=== PATIENT | male | born 2000 | race Caucasian/White ===

== ENCOUNTER 2020-01-31 21:47 | Emergency (ER) | payer BC ==
[2020-01-31 21:52] VITALS: BP 154/89; PULSE 74; RESP 20; TEMP 98.9
[2020-01-31] MEDS ORDERED: IBUPROFEN 600 MG STARTER PACK 4 TAB BTL PO STA (22:22)
--- NOTE | 2020-01-31 22:58 | ED ---
Upper Extremity HPI - General Chief Complaint: Extremity Injury, Upper Stated Complaint: Poss broken hand Time Seen by Provider: 01/31/20 21:56 Source: patient Mode of arrival: ambulatory Limitations: no limitations - History of Present Illness Initial Comments: 19-year-old male patient presents to the emergency department today for evaluation of left hand injury. Patient states became upset and punched a tree. Patient states he now has deformity and pain to the left hand. Denies taking anything for pain. Denies numbness or tingling to the hand. Denies any other injuries or concerns. Patient denies any headache, neck pain, back pain, chest pain, shortness of breath, dizziness, weakness, abdominal pain, nausea, vomiting, or difficulties with bowel movements or urination. - Related Data Previous Rx's Medication Instructions Recorded Ibuprofen [Motrin] 600 mg PO Q8HR PRN #30 tab 01/31/20 Allergies Allergy/AdvReac Type Severity Reaction Status Date / Time No Known Allergies Allergy Verified 01/31/20 22:15 Review of Systems ROS Statement: Those systems with pertinent positive or pertinent negative responses have been documented in the HPI. ROS Other: All systems not noted in ROS Statement are negative. Past Medical History Past Medical History: No Reported History Additional Past Surgical History / Comment(s): tooth abcess drain Smoking Status: Current every day smoker Past Alcohol Use History: None Reported Past Drug Use History: None Reported General Exam Limitations: no limitations General appearance: alert, in no apparent distress, other (This is a well- developed, well-nourished adult male patient in no acute distress. Vital signs upon presentation are temperature 98.9F, pulse 74, respirations 20, blood pressure 154/89, pulse ox 99% on room air.) Respiratory exam: Present: normal lung sounds bilaterally. Absent: respiratory distress, wheezes, rales, rhonchi, stridor Cardiovascular Exam: Present: regular rate, normal rhythm, normal heart sounds. Absent: systolic murmur, diastolic murmur, rubs, gallop, clicks Extremities exam: Present: full ROM, normal capillary refill, other (There is left hand deformity noted. Soft tissue swelling and tenderness over the carpals particularly left fourth. it is otherwise pink, warm, dry. Cap refills less than 3 seconds. Radial pulses 2+.). Absent: normal inspection, tenderness, pedal edema, joint swelling, calf tenderness Neurological exam: Present: alert, oriented X3, CN II-XII intact Psychiatric exam: Present: normal affect, normal mood Skin exam: Present: warm, dry, intact, normal color. Absent: rash Course Vital Signs 01/31/20 21:50 Temperature 98.9 F Pulse Rate 74 Respiratory 20 Rate Blood Pressure 154/89 O2 Sat by Pulse 99 Oximetry Procedures - Orthopedic Splinting/Casting Injury #1 Side: left Upper Extremity Injury Location: short arm Upper Extremity Immobilizer: ulnar gutter, Boni wrap Additional Comments: Hand well padded with web roll. Neurovascular status intact after splint application. Skin to the fingers is pink, warm, dry. Cap refills less than 3 seconds. Radial pulse is 2+. Patient denies numbness or tingling. Medical Decision Making - Medical Decision Making 19-year-old male patient presents to the emergency department today for evaluation after punching a chief reviewed his left hand. Physical examination did reveal deformity to the left dorsal hand especially over the fourth metacarpal. Neurovascular status was intact. Denied numbness or tingling. X- rays were obtained and did show a displaced fourth metacarpal fracture. Patient's hand was splinted. We discharged with orthopedics for further evaluation as soon as possible. He is instructed to follow-up with his primary care physician for recheck in 1-2 days. Return parameters were discussed in detail. He verbalizes understanding and agrees with this plan. - Radiology Data Radiology results: image reviewed 3 views of the left hand were obtained. Images reveal a displaced midshaft fracture of the left fourth metacarpal. Disposition Clinical Impression: Fracture of fourth metacarpal bone of left hand Disposition: HOME SELF-CARE Condition: Good Instructions (If sedation given, give patient instructions): Hand Fracture (ED), Splint Care (ED) Additional Instructions: Keep sling in place until follow-up with orthopedics. Follow-up with orthopedics as soon as possible. Call in the morning for an appointment. Return to the emergency department for any new, worsening, or concerning symptoms. Prescriptions: Ibuprofen [Motrin] 600 mg PO Q8HR PRN #30 tab PRN Reason: Pain Is patient prescribed a controlled substance at d/c from ED?: No Referrals: Mariella Cabrera DO [Doctor of Osteopathic Medicine] - 1-2 days Time of Disposition: 23:22
--- NOTE | 2020-02-01 01:23 | XR ---
EXAM: XR Left Hand Complete, 3 or More Views CLINICAL HISTORY: ITS.REASON XR Reason: punched tree TECHNIQUE: Frontal, lateral and oblique views of the left hand. COMPARISON: No relevant prior studies available. FINDINGS: Bones/joints: There is a transverse fracture of the midshaft of the fourth metacarpal with 5 dorsal displacement and 35 palmar angulation of the distal fracture fragment. The remaining phalanges, metacarpals, carpal bones appear intact and normally aligned. Soft tissues: Mild soft tissue swelling over the portion of the hand. No radiopaque foreign body. IMPRESSION: There is a transverse fracture of the midshaft of the fourth metacarpal with 5 dorsal displacement and 35 palmar angulation of the distal fracture fragment.
== END 2020-01-31 23:31 | disposition home or self-care (01) ==
LOC: EC 21:47
DX: S62.325A Displaced fracture of shaft of fourth metacarpal bone, left hand, initial encounter for closed fracture (principal); F17.200 Nicotine dependence, unspecified, uncomplicated; W22.09XA Striking against other stationary object, initial encounter; Y92.89 Other specified places as the place of occurrence of the external cause
CPT/HCPCS: 29125; 99283

== ENCOUNTER 2020-12-26 14:51 | Emergency (ER) | payer BC, OTHER ==
[2020-12-26 17:08] VITALS: BP 139/87; PULSE 87; RESP 18; TEMP 98.1
[2020-12-26] MEDS ORDERED: IBUPROFEN 800 MG TAB PO STA (17:23)
[2020-12-26] MEDS ORDERED: PENICILLIN V POTASSIUM 250 MG TAB PO STA (17:23)
[2020-12-26] MEDS ORDERED: PENICILLIN VK 500MG STARTER 4 TAB BTL PO STA (17:23)
--- NOTE | 2020-12-26 17:24 | ED ---
General Adult HPI - General Chief complaint: Dental/Oral Stated complaint: Abscess Time Seen by Provider: 12/26/20 17:15 Source: patient Mode of arrival: ambulatory Limitations: no limitations - History of Present Illness Initial comments: This is a well-appearing 20-year-old male that presents to the emergency room with left lower tooth pain since Wednesday. Patient states that the tooth fell out a couple of years ago. He states it is tender in the lower jaw but denies any fevers. No medical history. Does not take medication on a daily basis. -: days(s) (4) Location: mouth (Left tooth 18) Radiation: non-radiation Severity scale (1-10): 2 Consistency: intermittent Improves with: none Worsens with: eating Associated Symptoms: denies other symptoms Treatments Prior to Arrival: none - Related Data Previous Rx's Medication Instructions Recorded Ibuprofen [Motrin] 600 mg PO Q8HR PRN #30 tab 01/31/20 Ibuprofen [Motrin] 600 mg PO Q8HR PRN #30 tab 12/26/20 Penicillin V Potassium [Pen Vee K] 500 mg PO Q6H 7 Days #28 tablet 12/26/20 Allergies Allergy/AdvReac Type Severity Reaction Status Date / Time No Known Allergies Allergy Verified 12/26/20 17:09 Review of Systems ROS Statement: Those systems with pertinent positive or pertinent negative responses have been documented in the HPI. ROS Other: All systems not noted in ROS Statement are negative. Past Medical History Past Medical History: No Reported History History of Any Multi-Drug Resistant Organisms: None Reported Additional Past Surgical History / Comment(s): tooth abcess drain Past Psychological History: No Psychological Hx Reported Smoking Status: Current every day smoker, Vaper Past Alcohol Use History: Rare Past Drug Use History: Marijuana General Exam Limitations: no limitations General appearance: alert, in no apparent distress Head exam: Present: atraumatic, normocephalic, normal inspection Eye exam: Present: normal appearance, EOMI ENT exam: Present: normal exam, normal oropharynx, mucous membranes moist, other (Tooth #18 eroded with exudate no abscess noted mild submandibular lymphadenopathy on the left) Neck exam: Present: normal inspection, full ROM. Absent: tenderness, meningismus, lymphadenopathy, thyromegaly Respiratory exam: Present: normal lung sounds bilaterally. Absent: respiratory distress, wheezes, rales, rhonchi, stridor Cardiovascular Exam: Present: regular rate, normal rhythm, normal heart sounds. Absent: systolic murmur, diastolic murmur, rubs, gallop, clicks Neurological exam: Present: alert, oriented X3, normal gait Psychiatric exam: Present: normal affect, normal mood Skin exam: Present: warm, dry, intact, normal color. Absent: rash, cyanosis, diaphoretic Course Vital Signs 12/26/20 17:04 Temperature 98.1 F Pulse Rate 87 Respiratory 18 Rate Blood Pressure 139/87 O2 Sat by Pulse 99 Oximetry Medical Decision Making - Medical Decision Making Patient comes in complaining of left lower tooth pain since Wednesday. There is a missing tooth #18 with pulp decay noted, there is no evidence of abscess. There is mild submandibular lymphadenopathy of the left mandible. Patient denies any fevers, nausea, vomiting or diarrhea. States that the tooth has broken off 2 years ago but is just started to become tender since Wednesday. He'll be placed on antibiotics and given Motrin for inflammation. He was instructed to follow-up with the dentist as soon as possible given a referral for [facility].. Discussed with Dr. Ibanez Disposition Clinical Impression: Dental abscess Disposition: HOME SELF-CARE Condition: Good Instructions (If sedation given, give patient instructions): Dental Abscess (ED), Toothache (ED) Additional Instructions: Take antibiotics and Motrin as prescribed. Follow up with a dentist as soon as possible. Return to emergency room if any new or worsening symptoms including fever or increased pain. [facility] [phone] Prescriptions: Ibuprofen [Motrin] 600 mg PO Q8HR PRN #30 tab PRN Reason: Pain Penicillin V Potassium [Pen Vee K] 500 mg PO Q6H 7 Days #28 tablet Is patient prescribed a controlled substance at d/c from ED?: No Referrals: None,Stated [Primary Care Provider] - 1-2 days Time of Disposition: 17:23
== END 2020-12-26 18:08 | disposition home or self-care (01) ==
LOC: EC 14:51
DX: K04.7 Periapical abscess without sinus (principal); F17.290 Nicotine dependence, other tobacco product, uncomplicated
CPT/HCPCS: 99282